=== PATIENT | male | born 1985 | race Caucasian/White ===

== ENCOUNTER 2025-03-19 15:02 | Outpatient (REF) | payer MEDICAID, SELFPAY ==
--- OUTSIDE RECORDS SUMMARY | 2025-03-19 14:00 | XMS_ITS | Encounter Summary ---
Author Organization [employer] Address [address] [place] [address] 7 [place] [address] Care Team Providers Care Director Child Name Role Phone Unavailable Primary Care Provider Unavailabl e Reason for Referral * Consultation (Routine) - Authorized Specialty Diagnoses / Procedures Referred By Martell calvert Referred To Contact Diagnoses Homeless family Enrike Hanson FNP [address] [place] [address] Phone: tel: fax: Referral ID Status Reason Start Date Expiration Date Visits Requested Visits Authorized [id number] Authorized Specialty Services Required 5 03/19/2026 1 1 Encounter Details Date Type Department Care Team (Late st Contact Info) Description 03/19/2025 2:00 PM EST Office Visit [facility] [address] [place] [address] Enrike Hanson FNP [address] [place] [address] Encounter to establish care (Primary Dx); Elevated BP reading w/ no diagnosis of HTN; Encounter for weight management; Dietary counseling; Exercise counseling; Tobacco dependence; Homeless family; Sexual dysfunction; Depression with anxiety Social History Tobacco Use Types Packs/Day Years Used Date Smoking Tobacco: Every Day Cigarettes Passive Smoke Exposure: Current Smokeless Tobacco: Never Tobacco Cessation:Ready to Q uit: Not Asked; Counseling Given: Not Answered Alcohol Answer Date Recorded How often do you have a drink containing alcohol ? 0 03/19/2025 How many drinks containing a lcohol do you have on a typical day when you are drinking? 0 03/19/2025 How often do you have six or more drinks on one occasion? 0 03/19/2025 Depression Answer Date Recorded Patient Health Questionnaire-9 Score 9 03/19/2025 Patient Health Questionnaire-9 Score 9 03/19/2025 Last PHQ-9: Questionnaire Data Not on file 1 05/20/2024 Housing Stability Answer Date Recorded What is your housing situation today? I do not have housing (Staying with others, in a hotel, in a assisted, living outside on the street, on a beach, in a car, or in a park 03/10/[address] you li ve. Do you have problems with any of the following? None of the above 03/10/2025 Food Insecurity Answer Date Recorded Within the past 12 months, y ou worried that your food would run out before you got money to buy more: Sometimes True 2024 Within the past 12 months,th e food you bought just didn't last and you didn't have enough money to get more: Sometimes True 03/10/2025 Transportation Answer Date Recorded In the past 12 months, has l ack of transportation kept you from medical appts, meetings, work or from getting things needed for daily living? Yes, it has kept me from non-medical meetings, work, or getting things that I need 03/19/2025 Utilities Answer Date Recorded In the past 12 months, has t he electric, gas, oil or water company threatened to shut off services in your home? Yes 03/19/2025 Depression Answer Date Recorded Patient Health Questionnaire-2 Score 2 03/19/2025 Internet Access Answer Date Recorded Internet Access Q1 Yes 03/10/2025 Internet Access Q2 Not on file 03/10/2025 Sex and Gender Information Value Date Recorded Sex Assigned at Male 02/26/2025 10:28 AM EST Legal Sex Male 10:28 AM EST Gender Identity Male 02/26/2025 10:28 AM EST Sexual Orientation Straight 02/26/2025 10 :28 AM EST documented as of this encounter Last Filed Vital Signs Vital Sign Reading Time Taken Comments Blood Pressure 142/90 03/19/2025 2:11 PM EST Pulse 87 03/19/2025 2:01 PM EST Temperature 37 C (98.6 F) 03/19/2025 2:01 PM EST Respiratory Rate 17 03/19/2025 2:01 PM EST Oxygen Saturation 97% 03/19/2025 2:01 PM EST Inhaled Oxygen Concentration - - Weight 134 kg (295 lb 6.4 oz) 03/19/2025 2:01 PM EST Height 177.8 cm (5' 10 ) 03/19/2025 2:01 PM EST Body Mass Index 42.39 03/19/2025 2:01 PM EST documented in this encounter Functional Status * Over the past 2 weeks, how often have you been bothered by any of the following problems? Question Answer Date of Assessment Author Patient Health Questionnaire -2 Score 2 03/19/2025 2:09 PM Nehemiah Bello [place] * Little interest or pleasure in doing things Answer Date of Assessment Author Several days 03/19/2025 2:09 PM Liyah Bello [place] * Feeling down, depressed, or hopeless Answer Date of Assessment Author Several days 03/19/2025 2:09 PM Liyah Bello [place] * Trouble falling or staying asleep, or sleeping too much Answer Date of Assessment Author Several days 03/19/2025 2:09 PM Liyah Bello [place] * Feeling tired or having little energy Answer Date of Assessment Author Several days 03/19/2025 2:09 PM Liyah Bello [place] * Poor appetite or overeating Answer Date of Assessment Author Nearly every day 03/19/2025 2:09 PM Nehemiah Bello [place] * Feeling bad about yourself - or that you are a failure or have let yourself or your family down Answer Date of Assessment Author Not at all 03/19/2025 2:09 PM Liyah Bello [place] * Trouble concentrating on things, such as reading the newspaper or watching television Answer Date of Assessment Author Not at all 03/19/2025 2:09 PM Liyah Bello [place] * Moving or speaking so slowly that other people could have noticed? Or the opposite - being so fidgety or restless that you have been moving around a lot more than usual. Answer Date of Assessment Author Several days 03/19/2025 2:09 PM Liyah Bello [place] * Thoughts that you would be better off or hurting yourself in some way Answer Date of Assessment Author Several days 03/19/2025 2:09 PM Liyah Bello [place] * Patient Health Questionnaire-9 Score Answer Date of Assessment Author 9 03/19/2025 2:09 PM Liyah Bello [place] * Over the last 2 weeks, how often have you been bothered by any of the following problems? Question Answer Date of Assessment Author Feeling nervous, anxious, or on edge 2 03/19/2025 2:09 PM Nehemiah Bello [place] Not being able to stop or co ntrol worrying 1 03/19/2025 2:09 PM Nehemiah Bello [place] Worrying too much about diff erent things 1 03/19/2025 2:09 PM Nehemiah Bello [place] Trouble relaxing 2 03/19/2025 2:09 PM Nehemiah Cummings [place] Being so restless that it is hard to sit still 0 03/19/2025 2:09 PM Nehemiah Bello [place] Becoming easily annoyed or irritable 2 03/19/2025 2:09 PM Nehemiah Bello [place] Feeling afraid as if somethi ng awful might happen 0 03/19/2025 2:09 PM Nehemiah Bello MA GAETANO-7 Total Score 8 03/19/2025 2:09 PM Nehemiah Bello [place] * How difficult have these problems made it for you to do your work, take care of things at home, or get along with other people? Answer Date of Assessment Author Extremely difficult 03/19/2025 2:09 PM Nehemiah Valles [place] documented as of this encounter Plan of Treatment Upcoming Encounters Date Type Department Care Team (Late st Contact Info) Description 04/02/2025 2:30 PM EST Office Visit [facility] [address] [place] [address] Enrike Hanson FNP [address] [place] [address] 04/29/2025 8:00 AM EST Office Visit [facility] [address] [place] [address] Gregory Esposito, DMD [address] [place] [address] Scheduled Referrals Name Type Priority Associated Diagnoses Order Schedule Referral to Care Management Outpatient Referral Routine Homeless family Expected: 03/19/2025 (Approximate), Expires: 03/19/2026 documented as of this encounter Procedures Procedure Name Priority Date/Time Associated Diagnosis Comments CBC WITH AUTO DIFFERENTIAL Routine 03/19/2025 3:07 PM EST Encounter to establish care LIPID PANEL, STANDARD Routine 03/19/2025 3:07 PM EST Encounter to establish care COMPREHENSIVE METABOLIC PANEL Routine 03/19/2025 3:07 PM EST Encounter to establish care POCT GLYCATED HEMOGLOBIN, TOTAL Routine 03/19/2025 2:19 PM EST Encounter to establish care POCT GLUCOSE Routine 03/19/2025 2:17 PM EST Encounter to establish care documented in this encounter Results * (ABNORMAL) Lipid Panel, Standard (03/19/2025 3:07 PM EST) Triglycerides 113 <150 mg/dL [facility] Comment:Desirable Triglyceri de: less than 150 mg/dLBorderline High Triglyceride 150-199 mg/dLHigh Triglyceride: 200-499 mg/dLVery High Triglyceride: greater than or equal to 5OO mg/dL Cholesterol 144 <200 mg/dL [facility] Comment:Desirable Cholestero l: less than 200 mg/dLBorderline High Cholesterol: 200-239 mg/dLHigh Cholesterol: greater than 239 mg/dL LDL Cholesterol Calculated 90 <100 mg/dL [facility] Comment:Desirable LDL: less than 100 mg/dLNear Optimal/Above Optimal LDL: 110- 129 mg/dLBorderline High LDL: 130-159 mg/dLHigh LDL: 160-189 mg/dLVery High LDL: greater than or equal to 190 mg/dL HDL Cholesterol 32(L) >40 mg/dL [facility] Comment:Desirable HDL: great er than 40 mg/dL Note: This HDL assay may give artificially low results in patients with liver disease. Blood Venous blood specimen / Unknown 03/19/2025 3:07 PM EST 03/19/2025 4:18 PM EST Enrike Hanson FUEL MANAGER LAB BLOOD ORDERABLES Final Re sult [facility] [address] [place] [address] [phone] * (ABNORMAL) Comprehensive Metabolic Panel (03/19/2025 3:07 PM EST) Sodium 139 135 - 145 mmol/L [facility] Potassium 4.1 3.3 - 5.1 mmol/L [facility] Chloride 108 96 - 108 mmol/L [facility] Carbon Dioxide 24 22 - 29 mmol/L [facility] Anion Gap 11(L) 12 - 20 [facility] Urea Nitrogen (BUN) 15 9 - 16 mg/dL [facility] Creatinine, Serum 1.08 0.5 - 1.4 mg/dL [facility] Estimated Glomerular Filt Rate >60 [facility] Comment:Chronic Kidney Disea se: Estimated GFR < 60 mL/min/1.91l4Cyulvj Kidney Disease: Estimated GFR < 15 mL/min/1.73m2 Glucose 76 60 - 115 mg/dL [facility] Calcium 9.1 8.4 - 10.2 mg/dL [facility] Bilirubin, Total 0.4 0.0 - 1.0 mg/dL [facility] Aspartate Amino Transferase 26 5 - 37 U/L [facility] Alanine Aminotransferase 47(H) 0 - 40 U/L [facility] Total Protein 7.3 6.5 - 8.0 g/dL [facility] Albumin Level 4.5 3.5 - 5.0 g/dL [facility] Alkaline Phosphatase 79 39 - 117 U/L [facility] Blood Venous blood specimen / Unknown 03/19/2025 3:07 PM EST 03/19/2025 4:18 PM EST Enrike Hanson FUEL MANAGER LAB BLOOD ORDERABLES Final Re sult [facility] [address] [place] [phone] * (ABNORMAL) CBC auto differential (03/19/2025 3:07 PM EST) White Blood Count 11.4(H) 4.8 - 10.8 X10*3/uL [facility] Red Blood Count 5.86(H) 4.60 - 5.80 X10*6/uL [facility] Hemoglobin 15.7 14.0 - 18.0 g/dl [facility] Hematocrit 47.9 42.0 - 52.0 % [facility] Mean Corpuscular Volume 81.7 80.0 - 98.0 fL [facility] Mean Corpuscular Hemoglobin 26.8(L) 27.0 - 33.0 pg [facility] Mean Corpuscular HGB Conc 32.8 31.0 - 36.0 g/dl [facility] Red Cell Distribution Width 12.6 11.0 - 16.0 % [facility] Platelet Count 290 160 - 400 X10*3/uL [facility] Mean Platelet Volume 10.0 9.4 - 12.4 fL [facility] Neutrophils Percent Auto 61.1 45 - 73 % [facility] Imm Gran Pct Auto 0.5(H) 0.0 - 0.4 % [facility] Lymphocytes Percent Auto 27.9 20 - 40 % [facility] Monocytes Percent Auto 7.4 2 - 11 % [facility] Eosinophils Percent Auto 2.3 0 - 4 % [facility] Basophils Percent Auto 0.8 0 - 2 % [facility] NRBC Pct Auto 0.0 0.0 - 0.2 /100WBC [facility] Neutrophils Absolute Auto 7.0 2.0 - 8.3 x10*3/uL [facility] Imm Gran Abs Auto 0.06(H) 0.00 - 0.03 X10*3/uL [facility] Lymphocytes Absolute Auto 3.2 1.2 - 4.9 X10*3/uL [facility] Monocytes Absolute Auto 0.8 0.1 - 1.2 X10*3/uL [facility] Eosinophils Absolute Auto 0.3 0.0 - 0.4 X10*3/uL [facility] Basophils Absolute Auto 0.1 0.0 - 0.2 X10*3/uL [facility] NRBC Abs Auto 0.000 0.0 - 0.012 X10*3/uL [facility] Blood Venous blood specimen / Unknown 03/19/2025 3:07 PM EST 03/19/2025 4:11 PM EST [facility] LAB BLOOD ORDERABLES Final Re sult [facility] [address] [place] [phone] * POCT Hgb A1c (03/19/2025 2:19 PM EST) Hemoglobin A1C 5.2 4.0 - 5.7 % [employer] Media Lot # [id number] Lot# Expiration Date [id number] Blood 03/19/2025 2:19 PM EST Result [facility] POINT OF CARE TEST ENTER/EDIT ORDERABLES Final Result * POCT Glucose (03/19/2025 2:17 PM EST) Glucose Blood, POC 100 60 - 200 mg/dL [employer] Lot # [id number] Lot# Expiration Date 07, Blood Capillary blood specimen / Unknown 03/19/2025 2:17 PM EST [facility] POINT OF CARE TEST ENTER/EDIT ORDERABLES Final Result documented in this encounter Visit Diagnoses Diagnosis Encounter to establish care- Primary Elevated BP reading w/ no diagnosis of HTN Encounter for weight management Dietary counseling Dietary surveillance and counseling Exercise counseling Tobacco dependence Tobacco use disorder Homeless family Sexual dysfunction Psychosexual dysfunction, unspecified Depression with anxiety Dysthymic disorder documented in this encounter Additional Health Concerns Assessment Noted Time PHQ-9 Depression Total Score: 9 03/19/20 25 2:09 PM EST documented as of this encounter
[2025-03-19 16:14] LABS: MANUAL DIFF FLAG NO
[2025-03-19 16:31] LABS: Hematocrit 47.9 % (42.0-52.0); Hemoglobin 15.7 g/dl (14.0-18.0); Imm Gran Abs Auto 0.06 X10*3/uL (0.00-0.03); Imm Gran Pct Auto 0.5 % (0.0-0.4); Lymphocytes Absolute Auto 3.2 X10*3/uL (1.2-4.9); Mean Corpuscular HGB Conc 32.8 g/dl (31.0-36.0); Mean Corpuscular Hemoglobin 26.8 pg (27.0-33.0); Mean Corpuscular Volume 81.7 fL (80.0-98.0); NRBC Abs Auto 0.000 X10*3/uL (0.0-0.012); NRBC Pct Auto 0.0 /100WBC (0.0-0.2); Platelet Count 290 X10*3/uL (160-400); Red Blood Count 5.86 X10*6/uL (4.60-5.80); White Blood Count 11.4 X10*3/uL (4.8-10.8)
[2025-03-19 16:54] LABS: Alanine Aminotransferase 47 U/L (0-40); Albumin Level 4.5 g/dL (3.5-5.0); Alkaline Phosphatase 79 U/L (39-117); Anion Gap 11 (12-20); Aspartate Amino Transferase 26 U/L (5-37); Blood Urea Nitrogen 15 mg/dL (9-16); Calcium 9.1 mg/dL (8.4-10.2); Carbon Dioxide 24 mmol/L (22-29); Chloride 108 mmol/L (96-108); Cholesterol 144 mg/dL (<200); Estimated Glomerular Filt Rate > 60; HDL Cholesterol 32 mg/dL (>40); Potassium 4.1 mmol/L (3.3-5.1); Sodium 139 mmol/L (135-145); Total Protein 7.3 g/dL (6.5-8.0); Triglycerides 113 mg/dL (<150)
--- OUTSIDE RECORDS SUMMARY | 2025-03-19 23:38 | XMS_ITS | Encounter Summary ---
Author Organization [employer] Address [address] [place] [address] Care Team Providers Care Analog Ic Design Architect Name Role Phone Unavailable Primary Care Provider Unavailabl e Encounter Details Date Type Department Care Team (Latest Contact Info) Description 03/19/2025 Travel Social History Tobacco Use Types Packs/Day Years Used Date Smoking Tobacco: Every Day Cigarettes Passive Smoke Exposure: Current Smokeless Tobacco: Never Alcohol Answer Date Recorded How often do [...] with others, in a hotel, in a intermediate, living outside on the street, on a [...] AM EST documented as of this encounter Functional Status * Over the [...] Description 04/02/2025 2:30 PM EST Office Visit [facility] [address] [place], [place] [phone] Enrike Hanson FNP [address] [place], [place] [phone] 04/29/2025 8:00 AM EST Office Visit [facility] ADULT [facility]ENT[facility] [address] [place], [place] [phone] Gregory Esposito, DMD [address] [place], [place] [phone] documented as of this encounter Visit Diagnoses Not on filedocumented in this encounter Additional Health Concerns Assessment Noted Time PHQ-9 Depression Total Score: 9 03/19/20 25 2:09 PM EST documented as of this encounter
--- OUTSIDE RECORDS SUMMARY | 2025-03-19 23:38 | XMS_ITS | Encounter Summary ---
Author Organization [employer] Address [address] [place] [address] Care Team Providers Care Account Classification Clerk Name Role Phone Unavailable Primary Care Provider Unavailabl e Reason for Visit * Reason Onset Date Comments Chart Prep 03/18/2025 Encounter Details Date Type Department Care Team ([facility] Contact Info) Description 03/18/2025 Telephone [facility] [address] [place] [address] Enrike Hanson FNP [address] [place] [address] Chart Prep Social History Tobacco Use Types Packs/Day Years Used Date Smoking Tobacco: Never Assessed Alcohol Answer Date Recorded How often do [...] with others, in a hotel, in a senior living, living outside on the street, on a [...] got money to buy more: Sometimes True 12/01/ 2025 Within the past 12 months,th e food [...] the past 12 months, has t he [employer], gas, oil or water company threatened to [...] AM EST documented as of this encounter Miscellaneous Notes * Telephone Encounter - Nehemiah Morgan [place] - 03/18/2025 2:08 PM EST Chart Prep Labs: not applicable Images: not applicable Referrals: not applicable Vaccines due: Covid, Flu, Hep B, and HPV Screenings: Alcohol/Substance Use Screening Overdue care gaps: SBIRT, PHQ-9, GAETANO-7, Oral health screening, Disability screen, and Tobacco documented in this encounter Plan of Treatment Upcoming Encounters Date Type Department Care Team (Late st Contact Info) Description 04/02/2025 2:30 PM EST Office Visit [facility] MEDICINE [address] [place] [phone] Enrike Hanson FNP [address] [place] [phone] 04/29/2025 8:00 AM EST Office Visit [facility] ADULT DENTAL [address] [place] [phone] Gregory Esposito DMD [address] [place] [address] documented as of this encounter Visit Diagnoses Not on filedocumented in this encounter
--- OUTSIDE RECORDS SUMMARY | 2025-03-19 23:38 | XMS_ITS | Clinical Summary ---
Author Organization [facility] Address [address] [facility] [address] [place] [address] Care Team Providers Care Wedger And Gluer Name Role Phone Unavailable Primary Care Provider Unavailabl e Allergies Active Allergy Reactions Criticality Noted Date Comments Aspirin 03/19/2025 Medications nicotine (Nicoderm CQ) 14 MG/24HR patchIndications :Tobacco dependence Place 1 patch on the skin 1 (one) time each day at the same time. 30 patch 03/19/2025 3:59 PM EST 5 04/18/19 26 Active tadalafil (Cialis) 10 MG tabletIndication s:Sexual dysfunction Take 1 tablet (10 mg) by mouth if needed each day for erectile dysfunction. 10 tablet 5 04/18/19 26 Active Blood Pressure kit 1 each Once per day. 1 kit 5 Active Encounters Date Type Department Care Team Description 03/19/2025 2:00 PM EST Office Visit [address] [address] Enrike Hanson FNP Encounter to establish care (Primary Dx); Elevated BP reading w/ no diagnosis of HTN; Encounter for weight management; Dietary counseling; Exercise counseling; Tobacco dependence; Homeless family; Sexual dysfunction; Depression with anxiety 03/19/2025 Travel 03/18/[address] [address] Enrike Hanson FNP Chart Prep 03/12/2025 Population Health Risk Score [facility] ([facility]) Department [address] [phone] Provider, Population Health Generic 03/10/2025 Patient Outreach [facility] [address] [place] [phone] Julio Fermin Care Coordination (CHW outreach for SDOH housing search-LVM ) 03/10/2025 Patient Outreach [facility] [address] [place] [address] Enrike Hanson FNP Pre-visit Planning (SDOH Screening positive and Tobacco screening positive) 02/26/2025 Telephone [facility] [address] [place] [address] Enrike Hanson FNP [employer] from Last 3 Months Immunizations Immunization Administration Dates Next Due Influenza injectable quadrivalent preservative f ree 02/05/2020 Influenza, IIV3, injectable 03/01/2016, 4 Zhanna SARS-CoV-2 Vaccination 07/18/2020 TD (adult), 2 Lf tetanus tox oid, preservative free, adsorbed 12/12/2018 Tdap 03/25/2014 Social History Tobacco Use Types Packs/Day Years [...] with others, in a hotel, in a retirement, living outside on the street, on a [...] Orientation Straight 02/26/2025 10 :28 AM EST Last Filed Vital Signs Vital Sign Reading [...] Mass Index 42.39 03/19/2025 2:01 PM EST Plan of Treatment Upcoming Encounters Date Type Department Care Team (Late st Contact Info) Description 04/02/2025 2:30 PM EST Office Visit [facility] [address] [place] [phone] Enrike Hanson FNP [address] [place] [address] 04/29/2025 8:00 AM EST Office Visit [facility] [address] [place] [phone] Gregory Esposito, DMD [address] [place] [address] Health Maintenance Due Date Last Done Comments HIV Screening 1984 Family Planning (PISQ) 06/20/1999 HPV Vaccines (1 - Male 3-dos e series) 06/20/1999 Hepatitis C Screening 2002 Hepatitis B Vaccines (1 of 3 - 19+ 3-dose series) 06/20/2003 Pneumococcal Vaccine: Pediatrics (0 to 5 Years) and At-Risk Patients (6 to 49) Years (1 of 2 - PCV) 06/20/2003 COVID-19 Vaccine (2 - 2024-2 6 season) 2024 07/18/2020 Influenza Vaccine (#1) 2024 0, 03/01/2016, 03/25/2014 Depression Monitoring 09/17/2025 03/19/2025 , 03/19/2025 Alcohol/Substance Use Screening 03/19/2026 03/19/2025 Disability Screening 03/19/2026 03/19/2025 SDOH Screening 03/19/2026 03/19/2025 Tobacco Screening 03/19/2026 03/19/2025 DTaP/Tdap/Td Vaccines (3 - T d or Tdap) 12/12/2028 12/12/2018, 03/25/2014 Lipid Panel 03/19/2030 03/19/2025 Zoster Vaccines (1 of 2) 2034 RSV Patients and Patients Aged 60 years or older (1 - 1-dose 75+ series) 06/20/2059 HIB Vaccines Aged Out No longer eligi ble based on patient's age to complete this topic Hepatitis A Vaccines Aged Out No long er eligible based on patient's age to complete this topic IPV Vaccines Aged Out No longer eligi ble based on patient's age to complete this topic Meningococcal B Vaccine Aged Out No l onger eligible based on patient's age to complete this topic Meningococcal Vaccine Aged Out No rahul marcell eligible based on patient's age to complete this topic RSV under 20 months Aged Out No longe r eligible based on patient's age to complete this topic Rotavirus Vaccines Aged Out No longer eligible based on patient's age to complete this topic Procedures Procedure Name Priority Date/Time Associated Diagnosis Comments LIPID PANEL, STANDARD Routine 03/19/2025 3:07 PM EST Encounter to establish care COMPREHENSIVE METABOLIC PANEL Routine 03/19/2025 3:07 PM EST Encounter to establish care CBC WITH AUTO DIFFERENTIAL Routine 03/19/2025 3:07 PM EST Encounter to establish care POCT GLYCATED HEMOGLOBIN, TOTAL Routine 03/19/2025 2:19 PM EST Encounter to establish care POCT GLUCOSE Routine 03/19/2025 2:17 PM EST Encounter to establish care from Last 3 Months Results * (ABNORMAL) CBC auto differential (03/19/2025 3:07 PM EST) White Blood Count 11.4(H) 4.8 - 10.8 X10*3/uL [facility] Red Blood Count 5.86(H) 4.60 - 5.80 X10*6/uL [facility] Hemoglobin 15.7 14.0 - 18.0 g/dl [facility] Hematocrit 47.9 42.0 - 52.0 % [facility] Mean Corpuscular Volume 81.7 80.0 - 98.0 fL [facility] Mean Corpuscular Hemoglobin 26.8(L) 27.0 - 33.0 pg [facility] Mean Corpuscular HGB Conc 32.8 31.0 - 36.0 g/dl [facility] Red Cell Distribution Width 12.6 11.0 - 16.0 % [facility] Platelet Count 290 160 - 400 X10*3/uL [facility] Mean Platelet Volume 10.0 9.4 - 12.4 fL [facility] Neutrophils Percent Auto 61.1 45 - 73 % [facility] Imm Gran Pct Auto 0.5(H) 0.0 - 0.4 % [facility] Lymphocytes Percent Auto 27.9 20 - 40 % [facility] Monocytes Percent Auto 7.4 2 - 11 % [facility] Eosinophils Percent Auto 2.3 0 - 4 % [facility] Basophils Percent Auto 0.8 0 - 2 % [facility] NRBC Pct Auto 0.0 0.0 - 0.2 /100WBC [facility] Neutrophils Absolute Auto 7.0 2.0 - 8.3 x10*3/uL [facility] Imm Gran Abs Auto 0.06(H) 0.00 - 0.03 X10*3/uL [facility] Lymphocytes Absolute Auto 3.2 1.2 - 4.9 X10*3/uL [facility] Monocytes Absolute Auto 0.8 0.1 - 1.2 X10*3/uL [facility] Eosinophils Absolute Auto 0.3 0.0 - 0.4 X10*3/uL [facility] Basophils Absolute Auto 0.1 0.0 - 0.2 X10*3/uL [facility] NRBC Abs Auto 0.000 0.0 - 0.012 X10*3/uL [facility] Blood Venous blood specimen / Unknown 03/19/2025 3:07 PM EST 03/19/2025 4:11 PM EST Enrike Hanson [facility] BLOOD ORDERABLES Final Re sult [facility] [address] [place] [address] [phone] * (ABNORMAL) Lipid Panel, Standard (03/19/2025 3:07 PM EST) Triglycerides 113 <150 mg/dL [facility] Comment:Desirable Triglyceri de: less than 150 mg/dLBorderline High Triglyceride 150-199 mg/dLHigh Triglyceride: 200-499 mg/dLVery High Triglyceride: greater than or equal to 5OO mg/dL Cholesterol 144 <200 mg/dL [facility] Comment:Desirable Cholestero l: less than 200 mg/dLBorderline High Cholesterol: 200-239 mg/dLHigh Cholesterol: greater than 239 mg/dL LDL Cholesterol Calculated 90 <100 mg/dL [facility] Comment:Desirable LDL: less than 100 mg/dLNear Optimal/Above Optimal LDL: 110- 129 mg/dLBorderline High LDL: 130-159 mg/dLHigh LDL: 160-189 mg/dLVery High LDL: greater than or equal to 190 mg/dL HDL Cholesterol 32(L) >40 mg/dL [facility] Comment:Desirable HDL: great er than 40 mg/dL Note: This HDL assay may give artificially low results in patients with liver disease. Blood Venous blood specimen / Unknown 03/19/2025 3:07 PM EST 03/19/2025 4:18 PM EST Enrike Hanson [employer] LAB BLOOD ORDERABLES Final Re sult [facility] [address] [place] [address] [phone] * (ABNORMAL) Comprehensive Metabolic Panel (03/19/2025 3:07 PM EST) Sodium 139 135 - 145 mmol/L [facility] Potassium 4.1 3.3 - 5.1 mmol/L [facility] Chloride 108 96 - 108 mmol/L [facility] Carbon Dioxide 24 22 - 29 mmol/L [facility] Anion Gap 11(L) 12 - 20 [facility] Urea Nitrogen (BUN) 15 9 - 16 mg/dL [facility] Creatinine, Serum 1.08 0.5 - 1.4 mg/dL [facility] Estimated Glomerular Filt Rate >60 [facility] Comment:Chronic Kidney Disea se: Estimated GFR < 60 mL/min/1.02v1Bdrekf Kidney Disease: Estimated GFR < 15 mL/min/1.73m2 Glucose 76 60 - 115 mg/dL [facility] Calcium 9.1 8.4 - 10.2 mg/dL [facility] Bilirubin, Total 0.4 0.0 - 1.0 mg/dL [facility] Aspartate Amino Transferase 26 5 - 37 U/L [facility] Alanine Aminotransferase 47(H) 0 - 40 U/L [facility] Total Protein 7.3 6.5 - 8.0 g/dL [facility] Albumin Level 4.5 3.5 - 5.0 g/dL [facility] Alkaline Phosphatase 79 39 - 117 U/L [facility] Blood Venous blood specimen / Unknown 03/19/2025 3:07 PM EST 03/19/2025 4:[address] [facility] BLOOD ORDERABLES Final Re sult [facility] [address] [place] [address] [phone] * POCT Hgb A1c (03/19/2025 2:19 PM EST) Hemoglobin A1C 5.2 4.0 - 5.7 % QC Media Lot # [id number] Lot# Expiration Date 972, Blood 03/19/2025 2:19 PM EST [facility] POINT OF CARE TEST ENTER/EDIT ORDERABLES Final Result * POCT Glucose (03/19/2025 2:17 PM EST) Glucose Blood, POC 100 60 - 200 mg/dL QC Media Lot # [id number] Lot# Expiration Date 409,026 Blood Capillary blood specimen / Unknown 03/19/2025 2:17 PM EST [facility] POINT OF CARE TEST ENTER/EDIT ORDERABLES Final Result from Last 3 Months Insurance [facility] C3 DENTAL-[facility] MEDICAID STAND ADULT
== END 2025-03-19 15:03 | disposition home or self-care (01) ==
LOC: HO.HHCL 15:02
DX: Z76.89 Persons encountering health services in other specified circumstances (principal)
CPT/HCPCS: 36415; 80053; 80061; 85025